=== PATIENT | female | born 2000 | race Caucasian/White ===

== ENCOUNTER 2021-04-04 19:24 | Emergency (ER) | payer BC ==
[~2021-04-04] VITALS: Ht 165.1 cm; Wt 108.9 kg
[~2021-04-04 19:24] MED LIST: TOBRAMYCIN SULFA5 ML OP
[2021-04-04 23:24] VITALS: BP 131/70
== END 2021-04-04 23:25 | disposition home or self-care (01) ==
LOC: M.ERS 19:24
DX: R04.0 Epistaxis (principal); Z20.822 Contact with and (suspected) exposure to COVID-19